=== PATIENT | female | born 1990 | race Caucasian/White ===

== ENCOUNTER 2018-09-26 06:20 | Emergency (ER) | payer BC, MEDICAID ==
[2018-09-26] MEDS: ACETAMINOPHEN 500 MG TAB PO (07:30)
== END 2018-09-26 10:11 | disposition home or self-care (01) ==
LOC: FTE 06:20
DX: S00.03XA Contusion of scalp, initial encounter (principal); Y04.2XXA Assault by strike against or bumped into by another person, initial encounter
CPT/HCPCS: 70450; 70486; 73090; 73090-RT; 73630-LT; 99284-25